=== PATIENT | male | born 1940 | race Caucasian/White ===

== ENCOUNTER → 2021-04-18 13:58 | Outpatient (BNVA) | payer MEDICARE, OTHER, SELFPAY | PROVIDERS: PCP Family Medicine; Visit Provider Nurse Practitioner Family | DX: R25.1 Tremor, unspecified (principal); R26.89 Other abnormalities of gait and mobility; Z91.81 History of falling | CPT/HCPCS: Q3014 ==

== ENCOUNTER → 2021-05-23 10:48 | Outpatient (BNVA) | payer MEDICARE, OTHER, SELFPAY | PROVIDERS: PCP Family Medicine; Visit Provider Nurse Practitioner Family | DX: G20 Parkinson's disease (principal); H53.2 Diplopia; H50.53 Vertical heterophoria; Z91.81 History of falling | CPT/HCPCS: 99212 ==

== ENCOUNTER → 2021-11-21 10:44 | Outpatient (BNVA) | payer MEDICARE, OTHER, SELFPAY | PROVIDERS: PCP Family Medicine; Visit Provider Nurse Practitioner Family | DX: G20 Parkinson's disease (principal); R26.89 Other abnormalities of gait and mobility; R41.3 Other amnesia | CPT/HCPCS: 99212 ==

== ENCOUNTER → 2022-01-25 10:57 | Outpatient (BNVA) | payer MEDICARE, OTHER, SELFPAY | PROVIDERS: PCP Family Medicine; Visit Provider Psychiatry & Neurology Neurology | DX: G20 Parkinson's disease (principal); R26.89 Other abnormalities of gait and mobility; R41.3 Other amnesia | CPT/HCPCS: 99212 ==

== ENCOUNTER → 2022-05-29 10:43 | Outpatient (BNVA) | payer MEDICARE, OTHER, SELFPAY | PROVIDERS: PCP Family Medicine; Visit Provider Psychiatry & Neurology Neurology | DX: G20 Parkinson's disease (principal); R26.89 Other abnormalities of gait and mobility; R41.3 Other amnesia | CPT/HCPCS: 99212 ==

== ENCOUNTER 2022-11-29 12:25 | Outpatient (AMB) | payer MEDICARE, OTHER, SELFPAY ==
--- NOTE | 2022-11-29 12:25 | A.OFFVIS_ITS ---
Intake Vital Signs 11/29/22 12:26 Height 5 ft 5 in Weight 165 lb 4 oz BMI 27.5 BP 122/70 Blood Pressure Location Rt brachial Position Sitting Pulse 60 Pulse Source Pulse Oximeter Pulse Oximetry (%) 99 Oxygen Delivery Method Room Air Intake Visit Reasons: 6M follow up parkinson Intake Note: Pt presents as a 6m f/u parkinsons Flat Lock Machine Operator Required: No Allergies No Known Allergies Allergy (Verified 11/29/22 12:29) Medication List - Last Reconciled 11/29/22 by Mar Curtis MD acetaminophen-codeine 300-30 mg tabs PO PRN ascorbic acid (vitamin C) 1 g PO Q6H carbidopa-levodopa 25-100 mg (Sinemet) 1 tab PO TID 90 days cholecalciferol (vitamin D3) 25 mcg PO DAILY cyanocobalamin (vitamin B-12) 1,000 mcg PO DAILY sertraline 50 mg PO DAILY simvastatin 20 mg PO DAILY HPI HPI Comments History of Present Illness Details 82 y/o male patient presents with his wi fe for follow up of Parkinson's. 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 Pt denies falls. Pt uses hiking pole occasionally. No hallucinations. regular bowel movements Pt had cataract surgery done and double vision has been improved. [facility] Surgical History Hx of eye surgery Hx of left cataract extraction Hx of tonsillectomy Hx of transurethral resection of prostate Family History Mother No problems noted. Father Family history of prostate problems Social History Household Members: Spouse Alcohol intake: current Alcohol intake frequency: does not drink Patient Tobacco Use Status: Never used Tobacco Current occupational status: retired Physical Exam Vital Signs: Last Vital Signs Pulse 60 11/29/22 12:26 BP 122/70 11/29/22 12:26 Pulse Ox 99 11/29/22 12:26 Oxygen Delivery Method Room Air 11/29/22 12:26 BMI result Body Mass Index 27.5 Orientation What is the (year) (season) (date) (day) (month)?: year, season, date, day and month Where are we (state) (county) (town or city) (hospital) (floor)?: state, town or city, hospital/clinic and floor Registration Name of 3 unrelated objects clearly and slowly, then ask patient to repeat all 3 of them. (1st repeat determines score. Make sure they can repeat all three): object 1, object 2 and object 3 Attention & Calculation (CHOOSE ONE) Spell WORLD backwards (DLROW): 5 letters Recall Ask patient to repeat the 3 items from question #3.: object 1 and object 3 Language Show patient a wristwatch & ask what it is. Repeat for pencil.: watch and pencil Ask the patient to repeat the phrase 'No ifs, ands, or buts' after you.: correct Ask the patient to 'take a piece of paper with their right hand' 'fold paper in half' 'place paper on floor': take paper in right hand, fold paper in half and place paper on floor Print the sentence 'CLOSE YOUR EYES' on a piece. If patient actually closes eyes then score.: followed written direction Give patient a blank piece of paper & ask to write a sentence. Score if it contains a noun & verb.: sentence contains subject and verb Ask patient to copy figure of intersecting pentagons exactly. Score if all 10 angles & 2 intersects are included.: all 10 angles present & 2 are intersected Score Score: 28 Assessment & Plan Assessment & Plan (1) Parkinson disease: Code(s): G20 - Parkinson's disease (2) Loss of balance: Code(s): R26.89 - Other abnormalities of gait and mobility (3) Memory impairment: Code(s): R41.3 - Other amnesia Plan Sinemet 25/100 mg tid PT - for gait training Limit driving to local roads Orders: Orders PT Evaluation and Treatment Today G20 - Parkinson's disease Coding Level of Care Code Est Pt Level 4 (48924) Diagnoses Parkinson disease G20 Loss of balance R26.89 Memory impairment R41.3
[2022-11-29 12:26] VITALS: BP 122/70; PULSE 60; O2SAT 99; BMI 27.5
== END 2022-11-29 12:56 | disposition home or self-care (01) ==
PROVIDERS: Visit Provider Psychiatry & Neurology Neurology
DX: G20 Parkinson's disease (principal); R26.89 Other abnormalities of gait and mobility; R41.3 Other amnesia
CPT/HCPCS: 99214

== ENCOUNTER → 2022-11-29 12:25 | Outpatient (BNVA) | payer MEDICARE, OTHER, SELFPAY | PROVIDERS: Visit Provider Psychiatry & Neurology Neurology | DX: G20 Parkinson's disease (principal); R26.89 Other abnormalities of gait and mobility; R41.3 Other amnesia | CPT/HCPCS: 99212 ==

== ENCOUNTER 2023-06-03 12:36 | Outpatient (AMB) | payer MEDICARE, OTHER, SELFPAY ==
--- NOTE | 2023-06-03 12:40 | A.OFFVIS_ITS ---
Intake Vital Signs 06/03/23 12:41 Height 5 ft 5 in Weight 160 lb 2 oz BMI 26.6 BP 122/70 Blood Pressure Location Rt brachial Position Sitting Respiration 16 Pulse 60 Pulse Source Pulse Oximeter Pulse Oximetry (%) 98 Oxygen Delivery Method Room Air Intake Visit Reasons: 6M follow up parkinson-LVM Intake Note: Pt presents to the office for 6 month follow up for Balance issues. Medical Record Retrieval Specialist Required: No Allergies No Known Allergies Allergy (Verified 06/03/23 12:41) Medication List - Last Reconciled 06/03/23 by Mar Curtis MD acetaminophen-codeine 300-30 mg tabs PO PRN ascorbic acid (vitamin C) 1 g PO Q6H carbidopa-levodopa 25-100 mg (Sinemet) 1 tab PO TID 90 days cholecalciferol (vitamin D3) 25 mcg PO DAILY cyanocobalamin (vitamin B-12) 1,000 mcg PO DAILY memantine (Namenda XR) 7 mg PO DAILY sertraline 50 mg PO DAILY simvastatin 20 mg PO DAILY HPI HPI Comments History of Present Illness Details 83 y/o male patient presents with his wi fe for follow up of Parkinson's. Pt reports that his Parkinson's symptoms.He is tolerating sinemet 25/100 tid. he has trouble with name recall . He had 1 fall several weeks ago - tripped. He is independent in all ADls but is slow in dressing. 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 Pt uses hiking pole occasionally. No hallucinations. regular bowel movements 2 days a week he goes to [facility] and goes t o [facility] for PT.He finds it harder to stand up from low chairs He has occasional dizziness. Pt had cataract surgery done and double vision has been improved. [facility] Surgical History Hx of eye surgery Hx of left cataract extraction Hx of tonsillectomy Hx of transurethral resection of prostate Family History Mother No problems noted. Father Family history of prostate problems Social History Household Members: Spouse Alcohol intake: current Alcohol intake frequency: does not drink Patient Tobacco Use Status: Never used Tobacco Current occupational status: retired Physical Exam Vital Signs: Last Vital Signs Pulse 60 06/03/23 12:41 Resp 16 06/03/23 12:41 BP 122/70 06/03/23 12:41 Pulse Ox 98 06/03/23 12:41 Oxygen Delivery Method Room Air 06/03/23 12:41 BMI result Body Mass Index 26.6 Const General: cooperative, healthy appearing and no acute distress Nutritional Appearance: average body habitus Orientation/consciousness: patient oriented x3 HEENT Head: Yes normocephalic Resp Effort & Inspection: normal respiratory effort and able to speak in complete sentences Neuro Other: Moderately decreased facial expression and blink hypophonia no tremors General: patient oriented x3, tone normal and moves all extremities Cranial nerves: Yes CN's II-XII intact bilaterally Cognition (Neuro): normal cognition Speech: Other speech findings present (Neuro) (very mild hypophonia and slow. ) Gait exam (Neuro): Other gait observations present (stooped, good stride, mild slowness, decreased right UE arm swing) Motor exam (neuro): 5/5 motor strength present throughout Coordination: [id number] test normal Assessment & Plan Assessment & Plan (1) Parkinson disease: Code(s): G20 - Parkinson's disease (2) Loss of balance: Code(s): R26.89 - Other abnormalities of gait and mobility (3) Memory impairment: Code(s): R41.3 - Other amnesia Plan Sinemet 25/100 mg tid - misses the last dose often PT - for gait training Limit driving to local roads Medications: New memantine (Namenda XR) 7 mg PO DAILY 30 ea 0RF Coding Level of Care Code Est Pt Level 4 (39823) Diagnoses Parkinson disease G20 Loss of balance R26.89 Memory impairment R41.3
[2023-06-03 12:41] VITALS: BP 122/70; PULSE 60; RESP 16; O2SAT 98; BMI 26.6
== END 2023-06-03 13:16 | disposition home or self-care (01) ==
PROVIDERS: PCP Family Medicine; Visit Provider Psychiatry & Neurology Neurology
DX: G20.A1 Parkinson's disease without dyskinesia, without mention of fluctuations (principal); R26.89 Other abnormalities of gait and mobility; R41.3 Other amnesia
CPT/HCPCS: 99214

== ENCOUNTER → 2023-06-03 12:36 | Outpatient (BNVA) | payer MEDICARE, OTHER, SELFPAY | PROVIDERS: PCP Family Medicine; Visit Provider Psychiatry & Neurology Neurology | DX: G20.A1 Parkinson's disease without dyskinesia, without mention of fluctuations (principal); R26.89 Other abnormalities of gait and mobility; R41.3 Other amnesia | CPT/HCPCS: 99212 ==

== ENCOUNTER 2024-02-16 09:08 | Outpatient (AMB) | payer MEDICARE, OTHER, SELFPAY ==
--- NOTE | 2024-02-16 09:20 | A.OFFVIS_ITS ---
Vital Signs 02/16/24 09:27 Height 5 ft 5 in Weight 151 lb 8 oz BMI 25.2 BP 110/70 Blood Pressure Location Lt brachial Position Sitting Pulse 64 Pulse Source Pulse Oximeter Pulse Oximetry (%) 99 Oxygen Delivery Method Room Air Intake Visit Reasons: Follow up Intake Note: Patient presents for a follow up for Parkinson's. Stock Controller Required: No Accompanied by: Spouse Allergies No Known Allergies Allergy (Verified 02/16/24 09:26) Medication List - Last Reconciled 02/16/24 by Mar Curtis MD acetaminophen-codeine 300-30 mg tabs PO PRN ascorbic acid (vitamin C) 1 g PO DAILY carbidopa-levodopa 25-100 mg (Sinemet) 1 tab PO TID 90 days cholecalciferol (vitamin D3) 25 mcg PO DAILY cyanocobalamin (vitamin B-12) 1,000 mcg PO DAILY memantine 10 mg PO BID sertraline 50 mg PO DAILY simvastatin 20 mg PO DAILY tamsulosin 0.4 mg PO DAILY HPI Comments Details: 83 y/o male patient presents with his for follow up of Parkinson's. He lives in [facility] . In summer 2023 he was hospitalized for fever of unknown origin. He was hospitalized for 8 days and lost his hearing at discharge. He had course of steroids which helped. He was in [facility] for 2 weeks , then went to Assisted living . He is using a walker now.He had a few falls in rehab and 1 fall at [facility] S[facility] then his memory is worse- he also has some retrograde amnesia - forget that he made lunch for himself etc.He repeats often He has [facility] for his home PT and nursing . Pt reports that his Parkinson's symptoms has progressed . He is weaker and slow er.He is tolerating sinemet 25/100 tid. he has trouble with name recall . He is dependant on some ADLS. 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 No hallucinations. regular bowel movements Pt had cataract surgery done and double vision has been improved. [facility] Surgical History Hx of eye surgery Hx of left cataract extraction Hx of tonsillectomy Hx of transurethral resection of prostate Family History Mother No problems noted. Father Family history of prostate problems Social History Household Members: Spouse Alcohol intake: current Alcohol intake frequency: does not drink Patient Tobacco Use Status: Never used Tobacco Current occupational status: retired Physical Exam Vital Signs: Last Vital Signs Pulse 64 02/16/24 09:27 BP 110/70 02/16/24 09:27 Pulse Ox 99 02/16/24 09:27 Oxygen Delivery Method Room Air 02/16/24 09:27 BMI result Body Mass Index 25.2 Const General: cooperative, healthy appearing and no acute distress Nutritional Appearance: average body habitus Orientation/consciousness: patient oriented x3 HEENT Head: Yes normocephalic Resp Effort & Inspection: normal respiratory effort and able to speak in complete sentences Neuro Other: Moderately decreased facial expression and blink hypophonia no tremors General: patient oriented x3, tone normal and moves all extremities Cranial nerves: Yes CN's II-XII intact bilaterally Cognition (Neuro): normal cognition Speech: Other speech findings present (Neuro) (very mild hypophonia and slow. ) Gait exam (Neuro): Other gait observations present (stooped, good stride, mild slowness, decreased right UE arm swing) Motor exam (neuro): 5/5 motor strength present throughout Coordination: [id number] test normal Assessment & Plan Assessment & Plan (1) Parkinson disease: Code(s): G20 - Parkinson's disease Category: Medical Qualifiers: Dyskinesia presence: without dyskinesia Fluctuating manifestations: without fluctuating manifestations Qualified Code(s): G20.A1 - Parkinson's d isease without dyskinesia, without mention of fluctuations (2) Loss of balance: Code(s): R26.89 - Other abnormalities of gait and mobility Category: Medical (3) Memory impairment: Code(s): R41.3 - Other amnesia Category: Medical Plan Sinemet 25/100 mg tid continue PT - for gait training Speech and cognitive therapy - home. f/u Urodynamic studies and urology Orders: Referrals [facility] Referral G20.A1 - Parkinson's disease without dyskinesia, without mention of fluctuations, R41.3 - Other amnesia Medications: New memantine 10 mg PO BID 60 tabs 6RF Coding Level of Care Code Est Pt Level 4 (92182) Complex EM visit Add On G2211 Diagnoses Parkinson's disease without dyskinesia or fluctuating manifestations G20.A1 Dyskinesia presence: without dyskinesia Fluctuating manifestations: without fluctuating manifestations Loss of balance R26.89 Memory impairment R41.3
[2024-02-16 09:27] VITALS: BP 110/70; PULSE 64; O2SAT 99; BMI 25.2
== END 2024-02-16 10:08 | disposition home or self-care (01) ==
PROVIDERS: PCP Family Medicine; Visit Provider Psychiatry & Neurology Neurology
DX: G20.A1 Parkinson's disease without dyskinesia, without mention of fluctuations (principal); R26.89 Other abnormalities of gait and mobility; R41.3 Other amnesia
CPT/HCPCS: 99214; G2211

== ENCOUNTER → 2024-02-16 09:08 | Outpatient (BNVA) | payer MEDICARE, OTHER, SELFPAY | PROVIDERS: PCP Family Medicine; Visit Provider Psychiatry & Neurology Neurology | DX: G20.A1 Parkinson's disease without dyskinesia, without mention of fluctuations (principal); R26.89 Other abnormalities of gait and mobility; R41.3 Other amnesia | CPT/HCPCS: 99212 ==

== ENCOUNTER 2024-04-12 13:34 | Outpatient (AMB) | payer MEDICARE, OTHER, SELFPAY ==
--- NOTE | 2024-04-12 13:34 | A.OFFVIS_ITS ---
Intake Visit Reasons: Follow up Intake Note: patient presents for follow up Allergies No Known Allergies Allergy (Verified 04/12/24 13:34) Medication List - Last Reconciled 04/12/24 by Mar Curtis MD acetaminophen-codeine 300-30 mg tabs PO PRN ascorbic acid (vitamin C) 1 g PO DAILY carbidopa-levodopa 25-100 mg (Sinemet) 1 tab PO TID 90 days cholecalciferol (vitamin D3) 25 mcg PO DAILY cyanocobalamin (vitamin B-12) 1,000 mcg PO DAILY memantine 10 mg PO BID sertraline 50 mg PO DAILY simvastatin 20 mg PO DAILY tamsulosin 0.4 mg PO DAILY HPI Comments Details: 83 y/o male patient presents with his for follow up of Parkinson's. SInce then his memory is worse- he also has some retrograde amnesia - forget that he made lunch for himself etc.He repeats often He has [facility] for his home PT and cognitive exercises. Pt reports that his Parkinson's symptoms has progressed . He is weaker and slower.He is tolerating sinemet 25/100 tid. he has trouble with name recall . He is dependant on some ADLS. 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 No hallucinations. regular bowel movements Pt had cataract surgery done and double vision has been improved. [facility] Surgical History Hx of eye surgery Hx of left cataract extraction Hx of tonsillectomy Hx of transurethral resection of prostate Family History Mother No problems noted. Father Family history of prostate problems Social History Household Members: Spouse Alcohol intake: current Alcohol intake frequency: does not drink Patient Tobacco Use Status: Never used Tobacco Current occupational status: retired Physical Exam Const Other: Hypophonia General: cooperative Orientation/consciousness: oriented to person and oriented to time Neuro General: oriented to person and oriented to time Telehealth Telehealth Telehealth Platform: Telephone Location of provider rendering services: practice address Location of patient: address on file Patient Identification confirmed using: Name, : Yes Telehealth method: voice only Patient verbally consented to treatment: Yes Patient verbally consented to billing insurance company: Yes Patient informed of any privacy concerns related to visit: Yes Assessment & Plan Assessment & Plan (1) Parkinson disease: Code(s): G20 - Parkinson's disease Category: Medical Qualifiers: Dyskinesia presence: without dyskinesia Fluctuating manifestations: w ithout fluctuating manifestations Qualified Code(s): G20.A1 - Parkinson's disease without dyskinesia, without mention of fluctuations (2) Loss of balance: Code(s): R26.89 - Other abnormalities of gait and mobility Category: Medical (3) Memory impairment: Code(s): R41.3 - Other amnesia Category: Medical Plan Trial Sinemet 25/100 mg2-1-1- tid continue PT - for gait training Speech and cognitive therapy - home. Change memantine XR 28 mg qd Medications: New memantine 28 mg PO DAILY 30 ea 6RF Changed From carbidopa-levodopa 25-100 mg (Sinemet) 1 tab PO TID 90 days 270 tabs 1RF To carbidopa-levodopa 25-100 mg (Sinemet) 2 tabs am 1 at noon and PM orally 3 times a day; 90 days 360 tabs 1RF Discontinued memantine Discontinued Reason: Doctor's Order 10 mg PO BID 60 tabs 6RF Coding Level of Care Code Tele Est Pt Level 4 (88254) Diagnoses Parkinson's disease without dyskinesia or fluctuating manifestations G20.A1 Dyskinesia presence: without dyskinesia Fluctuating manifestations: without fluctuating manifestations Loss of balance R26.89 Memory impairment R41.3
--- OUTSIDE RECORDS SUMMARY | 2024-04-12 18:18 | XMS_ITS | Encounter Summary ---
Author Organization [facility] Address [address] [place] [id number] Care Team Providers Care Rail Splitter Name Role Phone Unavailable Primary Care Provider Unavailabl e Encounter Details Date Type Department Care Team (Late st Contact Info) Description 03/30/2024 Lab Requisition [facility] - Main Lab [address] [place] [address] Catarino Donaldson PA [address] [place] [address] Gross hematuria Social History Tobacco Use Types Packs/Day Years Used Date Smoking Tobacco: Never Assessed Sex and Gender Information Value Date Recorded Sex Assigned at Not on file Gender Identity Not on file Sexual Orientation Not on file documented as of this encounter Plan of Treatment Not on file documented as of this encounter Procedures Procedure Name Priority Date/Time Associated Diagnosis Comments BACTERIAL IDENTIFICATION AND SUSCEPTIBILITY, AEROBIC Routine 03/29/2024 12:00 AM EST Gross hematuria documented in this encounter Results * (ABNORMAL) Bacterial identification and susceptibility, aerobic (03/29/2024 12:00 AM EST) Culture, Bacterial ID and Sensitivity Enterobacter cloacae complex(A) STEFANO 04/01/2024 8:44 AM EST [facility] Comment: This is an edited result. Previous organism was Gram negative bacilli on 03/31/2024 at 1106 EST. Culture, Bacterial ID and Sensitivity Pseudomonas aeruginosa(A) STEFANO 04/01/2024 8:44 AM EST [facility] Comment: The organism value for this result has been updated. These results have been appended to the previously preliminary verified report. Other Urine specimen from urethra / Unknown 03/29/2024 03/30/2024 1:39 PM EST Narrative Organism Antibiotic Method Susceptibility Enterobacter cloacae complex Amoxicillin/Clavulanate STEFANO >=32 ug/ml: Resistant Enterobacter cloacae complex Cefoxitin STEFANO >=64 ug/ml: Resistant Enterobacter cloacae complex Ceftazidime STEFANO <=0.5 ug/ml: Susceptible Enterobacter cloacae complex Cefepime STEFANO <=0.12 ug/ml: Susceptible Enterobacter cloacae complex Meropenem STEFANO <=0.25 ug/ml: Susceptible Enterobacter cloacae complex Amikacin STEFANO <=1 ug/ml: Susceptible Enterobacter cloacae complex Gentamicin STEFANO <=1 ug/ml: Susceptible Enterobacter cloacae complex Ciprofloxacin STEFANO <=0.06 ug/ml: Susceptible Enterobacter cloacae complex Levofloxacin STEFANO <=0.12 ug/ml: Susceptible Enterobacter cloacae complex Nitrofurantoin STEFANO 64 ug/ml: Intermediate Enterobacter cloacae complex Trimethoprim/Sulfamethoxazo le STEFANO <=20 ug/ml: Susceptible Pseudomonas aeruginosa Piperacillin/Tazobactam STEFANO <=4 ug/ml: Susceptible Pseudomonas aeruginosa Ceftazidime STEFANO 2 ug/ml: Susceptible Pseudomonas aeruginosa Cefepime STEFANO 2 ug/ml: Susceptible Pseudomonas aeruginosa Meropenem STEFANO 1 ug/ml: Susceptible Pseudomonas aeruginosa Amikacin STEFANO 4 ug/ml: Susceptible Pseudomonas aeruginosa Ciprofloxacin STEFANO 0.5 ug/ml: Susceptible Pseudomonas aeruginosa Levofloxacin STEFANO 0.5 ug/ml: Susceptible [facility] MICROBIOLOGY - G ENERAL ORDERABLES [facility] ([facility]) [facility] [address] [place] [address], documented in this encounter Visit Diagnoses Diagnosis Gross hematuria documented in this encounter
--- OUTSIDE RECORDS SUMMARY | 2024-04-12 18:18 | XMS_ITS | Clinical Summary ---
Author Organization [address] [facility] Address [address] [place] [address] Phone Care Team Providers Care Creative Perfumer Name Role Phone Unavailable Primary Care Provider Unavailabl e Encounters Date Type Department Care Team Description 03/30/2024 Lab Requisition [facility] - Main Lab [address] [facility] [place] [address] Catarino Donaldson PA Gross hematuria from Last 3 Months Social History Tobacco Use Types Packs/Day Years Used Date Smoking Tobacco: Never Assessed Sex and Gender Information Value Date Recorded Sex Assigned at Not on file Gender Identity Not on file Sexual Orientation Not on file Plan of Treatment Health Maintenance Due Date Last Done Comments COVID-19 Vaccine (3 - Moderna risk series) 06/14/2020 05/17/2020, 04/19/2020 Falls Risk Assessment 02/17/2022 Medicare Annual Wellness Visit 02/17/2022 Social Influencers of Health Screening 02/17/2022 DTaP,Tdap,and Td Vaccines (2 - Td or Tdap) 01/26/2024 01/25/2014 Depression Screening 03/20/2025 03/20/2024 Cholesterol Screening (Lipid Panel) 06/26/2028 06/27/2023 Hepatitis A Vaccines Aged Out 08/23/2014, 01/26/20 14 No longer eligible based on patient's age to complete this topic Zoster Vaccines Completed 12/22/2017, 08/05/2017 Pneumococcal Vaccine: 65+ Years Completed 08/14/2022, 08/02/2016, 06/01/2015, Additional history exists RSV Immunization Patients 60+ Years Old Completed 01/29/2023, 01/24/2023 RSV Immunization Patients Under 20 months Aged Out 01/29/2023 No longer eligible based on patient's age to complete this topic Influenza Vaccine Completed 12/31/2023, , 12/21/2021, Additional history exists HIB Vaccines Aged Out No longer eligi ble based on patient's age to complete this topic HPV Vaccines Aged Out No longer eligi ble based on patient's age to complete this topic Hepatitis B Vaccines Aged Out No long er eligible based on patient's age to complete this topic IPV Vaccines Aged Out No longer eligi ble based on patient's age to complete this topic MMR Vaccines Aged Out No longer eligi ble based on patient's age to complete this topic Meningococcal ACWY Vaccine Aged Out N o longer eligible based on patient's age to complete this topic Varicella Vaccines Aged Out No longer eligible based on patient's age to complete this topic Procedures Procedure Name Priority Date/Time Associated Diagnosis Comments BACTERIAL IDENTIFICATION AND SUSCEPTIBILITY, AEROBIC Routine 03/29/2024 12:00 AM EST Gross hematuria from Last 3 Months Results * (ABNORMAL) Bacterial identification and susceptibility, aerobic (03/29/2024 12:00 AM EST) Culture, Bacterial ID and Sensitivity Enterobacter cloacae complex(A) STEFANO 04/01/2024 8:44 AM EST [facility] Comment: This is an edited result. Previous organism was Gram negative bacilli on 03/31/2024 at 1106 EST. Culture, Bacterial ID and Sensitivity Pseudomonas aeruginosa(A) STEFANO 04/01/2024 8:44 AM EST [facility] Comment: The organism value for this [...] G ENERAL ORDERABLES [facility] ([facility]) [facility] [address] [place] [address], from Last 3 Months
--- OUTSIDE RECORDS SUMMARY | 2024-04-12 18:18 | XMS_ITS | Data Portability ---
Author Organization [place] - [facility], Allergy Address [address] [place] [phone] Care Team Providers Care General Laborer Name Role Phone BRITTANI JASSO Primary Care Provider Assessment Encounter Date Assessment Date Assessment LastModified by Organization Details LastModified Time 10/20/2023 10/20/2023 Recommendations: Follow up with referring provider. 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 Symptoms began October 01 where he had intermittent fevers for several days, periods of confusion and delirium he was started on antibiotics for presumed pneumonia. There was a question of possible early ehrlichiosis but testing was ultimately negative. All tickborne testing and viral panels were negative. He had a CT of the chest abdomen and pelvis which was negative. He subsequently developed difficulty in his hearing 1 week later in the left ear and doxycycline was switched. He then developed difficulty 2 days later in his right ear. Flomax was discontinued due to possible ototoxicity. He has noted some improvement since starting prednisone 60 mg daily on the . Examination today shows moderate sensorineural hearing loss with reduced discrimination scores left compared to right. We discussed that it is quite unusual to have bilateral sensorineural hearing loss differential diagnosis includes idiopathic sudden hearing loss, post viral phenomenon or ototoxicity. I think the likelihood of a tumor or brainstem process is quite small. The medications he is currently taking typically do not cause hearing loss. I suspect symptoms are all related to what ever viral process was going on that began in the middle of September. I have suggested we complete the 14-day course of prednisone with 60 mg daily for 9 days and then tapering 10 mg/day over the next 5 days. We will have a follow-up audiogram next week. We can consider intratympanic steroid injection. dian Not available 10/20/2023 10:19:25 10/29/2023 10/29/2023 At this point we discussed his hearing thresholds are stable but his speech discrimination scores have improved. I have suggested we hold off on intratympanic steroid injections as we did not have a true baseline for his thresholds. He will have an MRI scan this weekend. His speech discrimination scores are very serviceable for hearing aids and I would recommend bilateral amplification. We discussed this with the patient, his spouse and his daughter Nola who is an emergency medicine physician in [place]. All questions answered. [email or web address] Not available 10/29/2023 11:28:31 Plan of Treatment Reminders Order Date Submit Date Provider Last Modified By Organization Details Last Modified Time Details Appointments Establish ed 2024 01:00P M PARVEEN BOWIE MD Not available Not available Not available Lab None recorded. Referral None recorded. Procedures None recorded. Surgeries None recorded. Imaging MRI, brain + internal auditory canal, w/wo contrast - next available ....IAC protocol 2023 024 [facility] ([facility]), [address] [facility], [place], [address], 11/25/2023 11:43:43 Medication Orders None recorded. Patient TargetsNo targets recorded. Patient InstructionsNo instructions recorded. Reason for Referral None Reported. Results Created Date Observation Date Name Description Value Unit Range Abnormal Flag Note LastModifiedBy Organization Detail LastModifiedTime 10/20/19 24 audio gram No observ ation record ed. Not Available 07/2023 14:18:18 10/30/19 24 audio gram No observ ation record ed. [facility] Not Available 2023 12:24:40 10/30/19 24 audio gram No observ ation record ed. BARCODE Not Available 2023 12:24:41 11/03/19 24 11/01/2023 MRI, brain + brain stem, w/wo contr ast [facility] Access ion Number : [id number] Patien t Name: Guillermo Herrera Record Number : [id number] Date of : 1939 Date of Exam: 2023 Referr ing Physic marion: Autumn santo , [facility] [address] [facility] [place] [address] Exam: MR Brain (C-/C+ ) CPT 75014 Room Descri ption: [place] Siem Verio 3.0T MR Brain (C-/C+ ) CPT 36581 INDICA TION / CLINIC AL QUESTI ON: Sensor ineura l hearin g loss, bilate ral, , next availa ble... .IAC protoc ol\E E\[facility] (MRI, BRAIN + LOSS PREVENTION CONSULTANT AL AUDITO RY CANAL, W/WO CONTRA ST) Sensor ineura l hearin g loss, bilate ral, , next availa ble... .IAC protoc ol\E E\[facility] (MRI, BRAIN + LOSS PREVENTION CONSULTANT AL AUDITO RY CANAL, W/WO CONTRA ST) TECHNI QUE: MRI of the brain with attent ion to the application support intern al audito ry canals was perfor med with and withou t contra st utiliz ing sagitt al T1, axial T2, axial CISS, axial and interiano l T1, and post-c ontras t axial and interiano l T1-caroline ghted sequen tracy. 13 mL Dotare m intrav enous contra st was admini stered . COMPAR ANTIONETTE: None. FINDIN GS: IAC: There is no mass or abnorm al enhanc ement in the application support intern al audito ry canals or cerebe llopon lorenza angles . Course and calibe r of the 7th and 8th crania l nerves is normal bilate rally. Fluid signal is preser rowan in the inner ear struct ures bilate rally. Brains tem demons trates normal signal . BRAIN and EXTRA- AXIAL SPACES : There is modera te ventri culome thee which appear s dispro portio monica compar ed to the degree of promin ence of the sulci. There are scatte red nonspe cific T2 hyperi ntensi ties in the white matter . EXTRAC RANIAL SOFT TISSUE S: Visual ized portio ns of the extrac ranial soft tissue s are unrema rkable . Left lens extrac tion is noted; orbits are otherw ise unrema rkable . Scatte red parana kelly sinus mucosa l thicke william with a mucus retent ion cyst in the right maxill chema sinus. BONES: Visual ized marrow signal is preser rowan. IMPRES KELSEA: No retroc ochlea r abnorm ality to explai n the patien t?s sympto msLatha Saab lly imaged dispro portio monica ventri culome thee which could reflec t atroph y with centra l predom inance or in the approp riate clinic al settin g could reflec t normal pressu re hydroc ephalu s. Electr onical ly Signed By: Aliya will MD [facility] ([facility]) [address] [facility], [place], [address], 11/03/2023 17:25:37 Result Notes None recorded. Problems Name Problem SNOMED Code Status Onset Date Resolution Date Notes Provider Name and Address Organization Details Recorded Time Sensorineur al hearing loss of bilateral ears 692242204 Active 2023 Zoe pastor [place] - [facility] [place] 4 09:50:48 Parkinson's disease 87377443 Active 2023 PARVEEN BOWIE MD [address] [place] [address], [phone], [facility] - [facility] 4 10:15:25 Sudden sensorineur al hearing loss 098524537 Active 2023 PARVEEN BOWIE MD [address] [place] [address], [phone], [facility] - [facility] [place] 4 10:15:36 Sensorineur al hearing loss 09750678 Active 2023 PARVEEN BOWIE MD [address] [place] [address], [place], [phone], [facility] - [facility] 4 10:20:00 Tinnitus 57830125 Active 2023 PARVEEN BOWIE MD [address] [address], [place], [phone], [place] - [facility] [place] 10:20:00 Bilateral tinnitus 5853691751371 Active 2023 PARVEEN BOWIE MD [address] [address], [place], [phone], [place] - [facility] [place] 10:20:00 Sudden hearing loss 29585503 Active 2023 PARVEEN BOWIE MD [address] [address], [place], [phone], [place] - [facility] [place] 10:20:23 Problem Notes None recorded. Procedures Surgical History Date Name Laterality Status Provider Name and Address Organization Details Recorded Time 10/29/2023 Air & Speech Audio with Tymps (88221, 70168 & 98238) completed LOUISA RALPH [address], [phone], [facility] - [facility] 10/29/2023 10:54:04 10/20/2023 Comp Audio with Tymps (15731 & 33553) completed Zoe Segundo [place] - [facility] 10/20/2023 09:50:40 Imaging Results Imaging Date Name Status LastModified by Organiz ation Details LastModified Time 10/20/2023 audiogram completed [email or web address] Information n ot available 10/20/2023 14:18:18 10/30/2023 audiogram completed [facility] Information no t available 10/30/2023 12:24:40 10/30/2023 audiogram completed [facility] Information no t available 10/30/2023 12:24:41 11/01/2023 MRI, brain + brain stem, w/wo contrast completed [facility] ([facility]) [address] [facility], [place], [address], 11/03/2023 17:25:37 Procedure Notes None recorded. Medical Equipment None Reported. Medications Name Sig Start Date Stop Date Status Note LastModified by Organization Details LastModified Time prednisone 10 mg tablet TAKE ONE TABLET BY MOUTH ONCE active Not Available Not Available No t Available Vitamin C 500 mg tablet TAKE TWO TABLETS BY MOUTH TWICE A DAY active Not Available Not Available No t Available cyanocobala min (vit B-12) 1,000 mcg tablet TAKE ONE TABLET BY MOUTH EVERY DAY active Not Available Not Available No t Available tamsulosin 0.4 mg capsule TAKE ONE CAPSULE BY MOUTH DAILY AT BEDTIME active Not Available Not Available No t Available pantoprazol e 40 mg tablet,micheline yed release TAKE ONE TABLET BY MOUTH EVERY DAY active Not Available Not Available No t Available mupirocin 2 % topical ointment APPLY TOPICALLY THREE TIMES A DAY FOR 14 DAYS 10/28 completed Not Available Not Available Not Available carbidopa 25 mg-levodopa 100 mg tablet 1 TAB ORALLY 3 TIMES A DAY FOR 90 DAYS active Not Available Not Available No t Available sertraline 50 mg tablet TAKE ONE TABLET BY MOUTH EVERY DAY active Not Available Not Available No t Available memantine 5 mg tablet TAKE ONE TABLET BY MOUTH TWICE A DAY active Not Available Not Available No t Available cholecalcif tate (vitamin D3) 25 mcg (1,000 unit) tablet TAKE ONE TABLET BY MOUTH EVERY DAY active Not Available Not Available No t Available memantine 7 mg capsule sprinkle,ex tended release 24hr TAKE 1 CAPSULE BY MOUTH EVERY DAY active Not Available Not Available No t Available Adults Multivitami n 18 mg iron-400 mcg-25 mcg tablet TAKE ONE TABLET BY MOUTH EVERY DAY active Not Available Not Available No t Available Vitals Date Recorded Body height Body mass index (BMI) Body weight Provider Name and Address Organization Details Last Updated DateTime 10/29/2023 167.64 cm 22.6 kg/m2 98689.93 g Armando Garcia [place] - [facility] 10/29/2023 11:03:41 Social History None recorded. Functional Status None recorded. Mental Status None recorded. Family History Nothing Reported. Medical History No medical history recorded. Past Encounters Encounter ID Performer Location Encounter Start Date Encounter Closed Date Diagnosis/Indication Diagnosis SNOMED-CT Code Diagnosis ICD10 Code Diagnosis Note [id number] PARVEEN BARNES MD [facility] [address] [address] 10/20/2023 08:38:31 10/20/2023 10:24:01 Sensorineural hearing loss of bilateral ears 854348435 H90.3 Parkinson's disease 4904 9000 G20.A1 Sudden sen sorineural hearing loss 298323225 H90.3 Tinnitus 47423505 H93.11 H93.12 Bilateral tinnitus 47295 88895 102 H93.13 Sudden hearing loss 7947 1008 H91.23 Sensorineu ral hearing loss 29641975 H90.5 [id number] LOUISA WINKLER [facility] [address] [place] [address] 10/20/2023 09:49:45 10/20/2023 15:41:44 Sensorineural hearing loss of bilateral ears 880425431 H90.3 Audiologic al evaluation results:[facility] ear:{{Norm al Normal through 2 kHz Mild* Moderate M oderately- severe Sev ere Profou nd}} {{hearing sloping to a mild slopi ng to a moderate s loping to moderately severe slo ping to severe* sl oping to profound f lat high frequency low frequency mid frequency cookie bite lara curve}} {{with sen sorineural hearing loss with* cond uctive hearing loss with mixed hearing loss with}} {{excellen t good* fa ir poor no measurable }} word recognitio n.Left ear:{{Norm al Normal through 2 kHz Mild* Moderate M oderately- severe Sev ere Profou nd}} {{hearing* sloping to a mild slopi ng to a moderate s loping to moderately severe slo ping to severe slo ping to profound f lat high frequency low frequency mid frequency cookie bite lara curve}} {{with sen sorineural hearing loss with* cond uctive hearing loss with mixed hearing loss with}} {{excellen t good kajal r poor* no measurable }} word recognitio n. Tympanomet ry:Right Ear:{{Type A Type As* Type Ad Type C Type C, shallow & rounded Ty pe B Type B with large volume Cou ld not maintain a hermetic seal}}Left Ear:{{Type A Type As* Type Ad Type C Type C, shallow & rounded Ty pe B Type B with large volume Cou ld not maintain a hermetic seal}} [id number] SONU ABEBE PA-C [facility] [address] [place] [address] 10/29/2023 10:20:33 10/29/2023 11:34:32 Sensorineural hearing loss of bilateral ears 717080839 H90.3 [id number] ANGLE SETHLOUISA [facility] [address] [place] [address] 10/29/2023 10:20:33 10/29/2023 11:34:32 Sensorineural hearing loss of bilateral ears 707879027 H90.3 Audiologic al evaluation results: Right ear: {{Normal N ormal through 2 kHz Mild M oderate* M oderately- severe Sev ere Profou nd}} {{hearing sloping to a mild slopi ng to a moderate s loping to moderately severe slo ping to severe slo ping to profound* flat high frequency low frequency mid frequency cookie bite lara curve}} {{with sen sorineural hearing loss with* cond uctive hearing loss with mixed hearing loss with}} {{excellen t good* fa ir poor no measurable }} word recognitio n. Left ear: {{Normal N ormal through 2 kHz Mild M oderate* M oderately- severe Sev ere Profou nd}} {{hearing sloping to a mild slopi ng to a moderate s loping to moderately severe slo ping to severe* sl oping to profound f lat high frequency low frequency mid frequency cookie bite lara curve}} {{with sen sorineural hearing loss with* cond uctive hearing loss with mixed hearing loss with}} {{excellen t good* fa ir poor no measurable }} word recognitio n. Tympanomet ry: Right Ear:{{Type A Type As* Type Ad Type C Type C, shallow & rounded Ty pe B Type B with large volume Cou ld not maintain a hermetic seal}} Left Ear:{{Type A* Type As Type Ad Type C Type C, shallow & rounded Ty pe B Type B with large volume Cou ld not maintain a hermetic seal}} Health Concerns Section Related Observation LastModified by Organization Detai ls LastModified Time None Recorded Concern Status LastModified by Organization Details LastModified Time None Recorded Advance Directives Directive None Recorded Payers Encounter Date Sequence Insurance Name Policy Number Policy Cruz Covered Member ID Cruz Member ID Guarantor Name 10/20/2023 2 [facility] [id number] Li Javier [id number] Li Javier 10/20/2023 1 [place] [facility] Li S Javier [id number] Li Javier 10/20/2023 2 [facility] [id number] Li Javier [id number] Li Javier 10/20/2023 1 [place] [facility] Li S Javier [id number] Li Javier 10/29/2023 2 [facility] [id number] Li Javier [id number] Li Javier 10/29/2023 1 [place] [facility] Li S Javier [id number] Li Javier 10/29/2023 2 [facility] [id number] Li Javier [id number] Li Javier 10/29/2023 1 [place] [facility] Li S Javier [id number] Li Javier Notes Date Note Type Note Provider Name and Address Organization Details Recorded Time 10/20/2023 text/html Patient seen wit h his spouse and his daughter virtually for an opinion regarding 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 Symptoms began October 01 where he had intermittent fevers for several days, periods of confusion and delirium he was started on antibiotics for presumed pneumonia. There was a question of possible early ehrlichiosis but testing was ultimately negative. All tickborne testing and viral panels were negative. He had a CT of the chest abdomen and pelvis which was negative. He subsequently developed difficulty in his hearing 1 week later in the left ear and doxycycline was switched. He then developed difficulty 2 days later in his right ear. Flomax was discontinued due to possible ototoxicity. He has noted some improvement since starting prednisone 60 mg daily on the .Daughter, Concha, felt he was better. Daughter, Dorina (ER at [facility] has not noticed improvement PARVEEN LOVELL MD [address] [place] [address], [phone], [facility] - [facility] 10/20/2023 10:21:52 10/29/2023 text/html Decreased hearing LOUISA RALPH 100 [facility] [address], [place], [address], [facility] - [facility] 10/29/2023 10:55:33 10/29/2023 text/html Pt still notes J HL but SDS improved. SONU ABEBE PA-C 100 [facility] [address], [place], [address], [facility] - [facility] 10/29/2023 11:28:47
== END 2024-04-13 14:22 | disposition home or self-care (01) ==
LOC: HO.HSMS 13:34
PROVIDERS: PCP Family Medicine; Visit Provider Psychiatry & Neurology Neurology
DX: G20.A1 Parkinson's disease without dyskinesia, without mention of fluctuations (principal); R26.89 Other abnormalities of gait and mobility; R41.3 Other amnesia
CPT/HCPCS: 98016

== ENCOUNTER → 2024-04-12 13:34 | Outpatient (BNVA) | payer MEDICARE, OTHER, SELFPAY | PROVIDERS: PCP Family Medicine; Visit Provider Psychiatry & Neurology Neurology | DX: R41.3 Other amnesia (principal); G20.A1 Parkinson's disease without dyskinesia, without mention of fluctuations ==